=== PATIENT | male | born 1970 | race Caucasian/White ===

== ENCOUNTER 2017-01-16 13:36 | Emergency (ER) | payer MEDICAID ==
[2017-01-16 13:45] VITALS: BP 90/77; TEMP 98.1; O2SAT 97
--- NOTE | 2017-01-16 14:16 | EDPHY ---
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 No paresthesia. No sensory or motor deficits. No weakness. PRIMARY CARE PROVIDER: Dr. Prosper Singh REVIEW OF SYSTEMS: A ten point review of systems was performed and is negative with the exception of the items mentioned in the HPI PHYSICAL EXAM (Prior to examination, patient consented to physical exam, hands were washed and my usual and customary physical exam procedures followed) 1) GENERAL: Well-developed, well-nourished, alert and oriented. Appears to be in no acute distress. 2) HEAD: Normocephalic 3) HEENT: Pupils equal, round, reactive to light bilaterally. 4) LUNGS: Breathing comfortably. 5) MUSCULOSKELETAL: Soft compartments. Normal coloration. reproducible pain with range of motion of the hand. 6) SKIN: intact no discoloration 7) VASCULAR: pulses and cap refill present are brisk 8) NEUROLOGIC: Radial, ulnar, median nerve function intact with no deficits appreciated on exam DIFFERENTIAL DIAGNOSIS: in no particular order including but not limited to fracture, sprain, compartment syndrome Procedure: Splint A Velcro volar wrist splint was applied by ER information systems technician. After application of the splint I returned and re-examined the patient. The splint was adequately immobilizing the joint and distal to the splint the patient's circulation and sensation were intact. Patient shows no signs of compartment syndrome. Was given orthopedic precautions. Smoking Status: Never smoked Constitutional: Initial Vital Signs Temperature (C) 36.7 C 01/16/17 13:42 Heart Rate 56 L 01/16/17 13:42 Respiratory Rate 17 01/16/17 13:42 Blood Pressure 90/77 L 01/16/17 13:42 O2 Sat (%) 97 01/16/17 13:42 O2 Delivery Mode Room Air Allergies/Adverse Reactions: No Known Allergies Allergy (Verified 01/16/17 13:41) Home Medications: Medication Instructions Recorded Ibuprofen [Motrin (*)] 600 mg PO Q6 #15 tab 01/16/17 MDM/Departure - MDM Imaging Results: Imaging Impressions Wrist X-Ray 01/16/17 13:54 Impression: Negative. If there is a high clinical concern regarding an occult carpal fracture, conservative management and short-term repeat radiographic follow-up in 7-14 days is suggested. Images reviewed myself Imaging: I viewed and interpreted images myself - Depart Disposition: Home, Routine, Self-Care Clinical Impression: Left wrist sprain Qualifiers: Encounter type: initial encounter Qualified Code(s): S63.502A - Unspecified sprain of left wrist, initial encounter Condition: Good Instructions: Wrist Sprain (ED) Additional Instructions: Return to the ER immediately if you experience discoloration, have worsening pain, numbness, tingling, or any other symptoms that concern you. If you received x-rays in the emergency department today, be advised, that ligamentous , tendon, muscular, and other non-bony injury cannot be fully ruled out. Try to keep your affected extremity elevated above the level of your chest, and keep cold packs on the affected area, for the next 48 hours. Prescriptions: Ibuprofen [Motrin (*)] 600 mg PO Q6 #15 tab Referrals: Prosper Singh MD [Primary Care Provider] - 1-2 days without fail
[2017-01-16 14:42] VITALS: PULSE 60; RESP 14
== END 2017-01-16 14:41 | disposition home or self-care (01) ==
DX: S63.502A Unspecified sprain of left wrist, initial encounter (principal); X50.9XXA Other and unspecified overexertion or strenuous movements or postures, initial encounter; Y92.69 Other specified industrial and construction area as the place of occurrence of the external cause; Y99.0 Civilian activity done for income or pay
CPT/HCPCS: L3908

== ENCOUNTER 2017-12-25 22:26 | Emergency (ER) | payer MEDICAID ==
--- NOTE | 2017-12-25 22:38 | EDPHY ---
H & P Stated Complaint: left calf and hamstring pain x4 days Time Seen by Provider: 12/25/17 22:37 HPI/ROS: HPI CHIEF COMPLAINT: Left calf pain HISTORY OF PRESENT ILLNESS: 47-year-old male, otherwise healthy no significant medical history except for seasonal allergies, presents emergency room left calf pain. Patient states that for the past 4 days he has been having some left calf and left thigh pain inner thigh. Describes sharp stabbing goes up down his leg. He denies any chest pain or shortness of breath denies pleuritic pain. He states he became concerned about a DVT and came to the emergency room for evaluation he has had pain for 4 days. 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 He has never had a DVT or PE before. No history of cardiovascular disease. Denies any leg trauma or leg swelling. 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 Family History: Noncontributory ROS REVIEW OF SYSTEMS: A comprehensive 10 point review of systems is otherwise negative aside from elements mentioned in the history of present illness. Exam Constitutional appears well nontoxic triage nursing summary reviewed, vital signs reviewed, awake/alert. Eyes normal conjunctivae and sclera, EOMI, PERRLA. HENT normal inspection, atraumatic, moist mucus membranes, no epistaxis, neck supple/ no meningismus, no raccoon eyes. Respiratory clear to auscultation bilaterally, normal breath sounds, no respiratory distress, no wheezing. Cardiovascular rate normal, regular rhythm, no murmur, no edema, distal pulses normal. Gastrointestinal soft, non-tender, no rebound, no guarding, normal bowel sounds, no distension, no pulsatile mass. Genitourinary no CVA tenderness. Musculoskeletal left leg: Neurovascular intact good distal pulse, good cap refill, no evidence of significant swelling. Warm extremity. no midline vertebral tenderness, full range of motion, no calf swelling, no tenderness of extremities, no meningismus, good pulses, neurovascularly intact. Skin pink, warm, & dry, no rash, skin atraumatic. Neurologic awake, alert and oriented x 3, AAOx3, moves all 4 extremities equally, motor intact, sensory intact, CN II-XII intact, normal cerebellar, normal vision, normal speech. Psychiatric normal mood/affect. Heme/Lymph/Immune no lymphadenopathy. Differential Diagnosis: Includes but is not limited to in a particular order calf strain, calf pull, DVT, musculoskeletal leg strain, nerve compression from prolonged sitting in a chair. Medical Decision Making: Plan for this patient ultrasound left lower extremity rule out DVT. Re-evaluation: Ultrasound reviewed of the left lower extremity shows no evidence of DVT. Recommend ice, gentle stretching, anti-inflammatory pain medicine for what most likely is calf strain versus musculoskeletal strain. Also additionally recommend that he does not prolonged sit in a chair at work for 9-10 hours a day and gets up multiple times and walks around. Source: Patient - Personal History Current Tetanus/Diphtheria Vaccine: Yes - Medical/Surgical History Hx Asthma: No Hx Chronic Respiratory Disease: No Hx Diabetes: No Hx Cardiac Disease: No Hx Renal Disease: No Hx Cirrhosis: No Hx Alcoholism: No Hx HIV/AIDS: No Hx Splenectomy or Spleen Trauma: No Other PMH: diverticulitis - Social History Smoking Status: Never smoked Constitutional: Initial Vital Signs Temperature (C) 36.8 C 12/25/17 22:30 Heart Rate 61 12/25/17 22:30 Respiratory Rate 18 12/25/17 22:30 Blood Pressure 115/81 H 12/25/17 22:30 O2 Sat (%) 96 12/25/17 22:30 O2 Delivery Mode Room Air Allergies/Adverse Reactions: No Known Allergies Allergy (Verified 12/25/17 22:30) Home Medications: Medication Instructions Recorded Ibuprofen [Motrin (*)] 600 mg PO Q6 #15 tab 01/16/17 Medical Decision Making - Diagnostics Imaging Results: Imaging Impressions Extremity Venous Study 12/25/17 22:45 Impression: Negative. No deep venous thrombosis. Findings discussed with Emergency Department physician, Berry Hughes MD at 12/25/2017 23:22. Departure - Departure Disposition: Home, Routine, Self-Care Clinical Impression: Strain of calf muscle Qualifiers: Encounter type: initial encounter Laterality: left Qualified Code(s): S86.812A - Strain of other muscle(s) and tendon(s) at lower leg level, left leg, initial encounter Condition: Good Instructions: Muscle Cramp (ED), Leg Cramps (ED) Additional Instructions: 1. Take Tylenol or Motrin for pain control 2. Make sure you ambulate when you are at work. 3. Gentle stretching. 4. Return to the emergency room if there is worsening symptoms. Referrals: Prosper Singh MD [Primary Care Provider] - As per Instructions
[2017-12-26 00:06] VITALS: BP 116/76
== END 2017-12-26 00:07 | disposition home or self-care (01) ==
DX: S86.812A Strain of other muscle(s) and tendon(s) at lower leg level, left leg, initial encounter (principal); X58.XXXA Exposure to other specified factors, initial encounter; Y99.8 Other external cause status; Y93.89 Activity, other specified

== ENCOUNTER 2018-06-23 16:46 | Emergency (ER) | payer MEDICAID ==
--- NOTE | 2018-06-23 17:46 | EDPHY ---
H & P Time Seen by Provider: 06/23/18 17:03 HPI/ROS: CHIEF COMPLAINT: Leg cramps, leg tingling HISTORY OF PRESENT ILLNESS: Patient is a 48-year-old male who presents emergency department with complaints of his left lower extremity cramping and tingling. Patient states that he became ill on 05/30/2018. On 06/11/2018 he saw the on-call physician for his primary care doctor. He was diagnosed with a virus. Initially complained of upper respiratory symptoms which have resolved. He had chills. He describes diffuse muscle aches. Does have improved. However his muscle aches have been more focally in the left lower extremity. He also noticed some mild tingling over his left foot. This is occurred for 2 days. He has no back pain. No recent fever. Patient has no current cough or shortness of breath. No chest pain. Patient denies abdominal pain. No nausea vomiting. No diarrhea. Patient has had no leg swelling or discoloration. No recent travel. No incontinence of urine or stool. No saddle paresthesias. REVIEW OF SYSTEMS: 10 systems were reveiwed and are negative with the exception of the elements mentioned in the history of present illness. Past Medical/Surgical History: The diverticulitis Past surgical history: Negative Social history: Patient does not smoke Family history: The patient has a family history of blood clot Smoking Status: Never smoked Physical Exam: 36.7, 123/72, 78, 17, 96% on room air GENERAL: Well-appearing, in no acute distress, alert. HEENT: Eyes normal to inspection, normal pharynx, no signs of dehydration. NECK: Normal, supple. RESPIRATORY: Clear to auscultation bilaterally, no rales, rhonchi or wheezing. Normal CVS: Regular rate and rhythm, no rubs, murmurs, or gallops. ABDOMEN: Soft, nontender, nondistended, no organomegaly. BACK: Normal to inspection, no CVA tenderness. Negative leg raise bilaterally SKIN: Normal color, no rash, warm, dry. No pallor. EXTREMITIES: No pedal edema, no calf tenderness, no Homans sign or cords, no joint swelling. Normal appearing lower extremity NEURO/PSYCH: Alert and oriented, normal mood and affect, normal motor sensory exam. No obvious cranial nerve deficit. Constitutional: Initial Vital Signs Temperature (C) 36.7 C 06/23/18 16:50 Heart Rate 78 06/23/18 16:50 Respiratory Rate 17 06/23/18 16:50 Blood Pressure 123/72 H 06/23/18 16:50 O2 Sat (%) 96 06/23/18 16:50 O2 Delivery Mode Room Air Allergies/Adverse Reactions: No Known Allergies Allergy (Verified 06/23/18 16:49) Home Medications: Medication Instructions Recorded Ibuprofen [Motrin (*)] 600 mg PO Q6 #15 tab 01/16/17 Medical Decision Making - Diagnostics Imaging Results: Imaging Impressions Extremity Venous Study 06/23/18 18:21 Impression: No deep vein thrombosis in the left lower extremity. Results discussed with Dr. Lopez at 7:25 PM. ED Course/Re-evaluation: In the emergency department I discussed possible etiologies with the patient. He was concerned about numerous etiologies. I think this is unlikely pneumonia. He has no cough, shortness of breath or fever. He has normal oxygen saturation and normal pulmonary exam. Patient was concerned about his family history of clotting. He has no cords, no Homans sign, no swelling of the leg, no recent travel. However I did offer the patient an ultrasound of his left lower extremity. He refused. Patient was concerned that he could have influenza. I explained that Tamiflu would not be recommended as his symptoms started on 05/30/2018. However the patient was adamant that he wanted a flu swab. This was ordered. I discussed possible etiologies of leg cramping and electrolyte abnormality. Chemistry panel was ordered. I discussed possibility of disc disease and nerve compression. At this time I do not feel the patient needs an emergent MRI. He does not have neuro surgical emergency. Patient requested ultrasound after his initial evaluation. This was ordered. Chemistry panel is unremarkable. Influenza screen was negative. The ultrasound: Please refer the dictated report. No acute disease noted. I discussed the results with the patient. I answered all his questions. He was given warnings prior to leaving. I went back to the room to have a 2nd discussion with the patien at his request. I answered all their questions. I spent a considerable time in the room discussing the findings and potential diagnoses with the patient. I recommend the patient follow up with primary care provider. I informed him that I would not have a specific diagnosis as the reason for his symptoms. Differential Diagnosis: My differential includes but is not limited to viral illness, influenza, mononucleosis, DVT, sciatica, disc herniation, mass, malignancy, ischemic CVA, hemorrhagic CVA - Data Points Laboratory Results: Laboratory Results 06/23/18 17:55 06/23/18 06/23/18 17:55 17:55 Sodium 138 mEq/L mEq/L (135-145) Potassium 4.4 mEq/L mEq/L (3.5-5.2) Chloride 108 mEq/L mEq/L (97-110) Carbon Dioxide 23 mEq/l mEq/l (22-31) Anion Gap 7 mEq/L mEq/L (6-14) BUN 15 mg/dL mg/dL (7-23) Creatinine 0.9 mg/dL mg/dL (0.7-1.3) Estimated GFR > 60 Glucose 92 mg/dL mg/dL (70-100) Calcium 9.2 mg/dL mg/dL (8.5-10.4) Nasal Influenza A PCR NEGATIVE FOR FLU A (NEGATIVE) Nasal Influenza B PCR NEGATIVE FOR FLU B (NEGATIVE) Departure - Departure Disposition: Home, Routine, Self-Care Clinical Impression: Leg paresthesia Condition: Good Instructions: Paresthesia (ED) Additional Instructions: Return with increasing shortness of breath, cough, fever, leg pain, swelling or any other concerns. Referrals: Prosper Singh MD [Primary Care Provider] - 5-7 days, call for appt.
[2018-06-23 19:47] VITALS: BP 104/65
== END 2018-06-23 19:47 | disposition home or self-care (01) ==
DX: R20.2 Paresthesia of skin (principal); M79.605 Pain in left leg